=== PATIENT | female | born 1980 ===

== ENCOUNTER 2017-09-29 18:19 | Emergency (ER) | payer MEDICAID, OTHER ==
[2017-09-29 18:19] VITALS: BMI 27.1
[2017-09-29] MEDS ORDERED: Sodium Chloride 0.9% 1,000 ML IV STA (18:38)
--- NOTE | 2017-09-29 18:39 | ED PDOC ---
History of Present Illness History of Present Illness: 36 year old female presents to the emergency department complaining of generalized body aches, headache, and fever, since yesterday. Patient also reports chest pain. She denies any cough, sore throat, vomiting, or diarrhea. Patient had gone to [facility] just prior but left because the wait was too long. PMD: none HPI: Influenza Time Seen by Provider: 09/29/17 18:31 Chief Complaint: Flu-like Symptoms Chief Complaint (Provider): Flu-like Symptoms History Per: Patient, Family (daughter at bedside is translating in slovenian) Exam Limitations: no limitations Onset/Duration Of Symptoms: Days (x2) Symptoms include: fever, headache, bodyaches, chest pain Past Medical History Reviewed: Historical Data, Nursing Documentation, Vital Signs Vital Signs: Last Vital Signs Temp 100.7 F H 09/29/17 18:24 Pulse 103 H 09/29/17 18:24 Resp 16 09/29/17 18:24 BP 112/71 09/29/17 18:24 Pulse Ox 100 09/29/17 18:24 - Medical History PMH: No Chronic Diseases - Surgical History Surgical History: (x3) - Family History Family History: States: Unknown Family Hx - Social History Current smoker - smoking cessation education provided: No Alcohol: Social Drugs: Denies - Immunization History Hx Tetanus Toxoid Vaccination: No Hx Influenza Vaccination: No Hx Pneumococcal Vaccination: No - Home Medications Home Medications: Ambulatory Orders Medication Instructions Recorded DiphenhydrAMINE [Benadryl] 25 mg PO Q4H PRN #15 cap 10/12/16 predniSONE [predniSONE Tab] 40 mg PO DAILY #6 tab 10/12/16 Acetaminophen [Tylenol 325mg tab] 650 mg PO Q4 PRN #1 bottle 09/29/17 Ibuprofen [Motrin] 600 mg PO Q6 PRN #20 tab 09/29/17 - Allergies Allergies/Adverse Reactions: Allergies Allergy/AdvReac Type Severity Reaction Status Date / Time No Known Allergies Allergy Verified 09/29/17 18:24 Review of Systems ROS Statement: Except As Marked, All Systems Reviewed And Found Negative Constitutional: Positive for: Fever ENT: Negative for: Throat Pain Cardiovascular: Positive for: Chest Pain Respiratory: Negative for: Cough Gastrointestinal: Positive for: Abdominal Pain. Negative for: Vomiting, Diarrhea Neurological: Positive for: Headache Physical Exam - Reviewed Nursing Documentation Reviewed: Yes Vital Signs Reviewed: Yes - Physical Exam Appears: Positive for: Non-toxic, No Acute Distress Head Exam: Positive for: ATRAUMATIC, NORMAL INSPECTION, NORMOCEPHALIC Skin: Positive for: Normal Color. Negative for: Rash Eye Exam: Positive for: Normal appearance ENT: Positive for: Normal ENT Inspection Cardiovascular/Chest: Positive for: Regular Rate, Rhythm Respiratory: Positive for: Normal Breath Sounds Gastrointestinal/Abdominal: Positive for: Soft. Negative for: Tenderness, Distended Neurologic/Psych: Positive for: Alert, Oriented Medical Decision Making Medical Decision Making: Impression: 36 year old with flu-like symptoms Time: 18:36 Plan: EKG CMP CBC Urine preg Chest x-ray Blood culture Throat culture Rapid strep test Flu swab IV fluids Motrin 600 mg PO Patient is aware of all diagnostic testing results, all questions answered. Patient feels much better. Repeat vitals are stable. Prescriptions provided for Tylenol and Motrin, advised rest, fluids and follow-up with clinic in 2-3 days. Scribe Attestation: Documented by Carley Monroe, acting as a scribe for Maricruz Dietz PA-C Provider Scribe Attestation: All medical record entries made by the Scribe were at my direction and personally dictated by me. I have reviewed the chart and agree that the record accurately reflects my personal performance of the history, physical exam, medical decision making, and the department course for this patient. I have also personally directed, reviewed, and agree with the discharge instructions and disposition. - Laboratory Results Result Diagrams: 09/29/17 19:20 09/29/17 18:52 Urine POC: Negative Urine dip results: Positive for: Blood (moderate - patient is currently menstruating). Negative for: Leukocyte Esterase, Nitrate, Ketones, Glucose, Bilirubin, Protein - ECG Interpretation Of ECG: NSR 71 bpm, no acute finding, reviewed by PA and ED attending O2 Sat by Pulse Oximetry: 100 (RA) Pulse Ox Interpretation: Normal - Other Rad CXR X-Ray: Interpreted by Me, Viewed By Me X-Ray Interpretation: no acute finding Disposition - Clinical Impression Clinical Impression: Influenza-like symptoms, Viral illness - Patient ED Disposition Is Patient to be Admitted: No Counseled Patient/Family Regarding: Studies Performed, Diagnosis, Need For Followup, Rx Given - Disposition Referrals: [facility] [place] [Outside] Disposition: Routine/Home Disposition Time: 20:56 Condition: IMPROVED Additional Instructions: Take rx meds as directed. Rest and drink plenty of fluids. Follow up with clinic in 2-3 days. Prescriptions: Acetaminophen [Tylenol 325mg tab] 650 mg PO Q4 PRN #1 bottle PRN Reason: Fever >100.4 F Ibuprofen [Motrin] 600 mg PO Q6 PRN #20 tab PRN Reason: Pain, Moderate (4-7) Instructions: Viral Syndrome (DC) Forms: [employer] (Nepali), [facility] ED School/Work Excuse Print Language: TONGAN Results - Lab Results Lab Results: 09/29/17 09/29/17 09/29/17 19:20 18:52 18:52 WBC 11.3 H RBC 4.25 Hgb 13.2 Hct 39.6 MCV 93.1 MCH 31.1 H MCHC 33.4 RDW 13.4 Plt Count 311 MPV 7.7 Neut % (Auto) 81.6 H Lymph % (Auto) 12.1 L [place] % (Auto) 6.1 Eos % (Auto) 0.0 Baso % (Auto) 0.2 Neut # (Auto) 9.2 H Lymph # (Auto) 1.4 [place] # (Auto) 0.7 Eos # (Auto) 0.0 Baso # (Auto) 0.0 Sodium 139 Potassium 3.5 L Chloride 105 Carbon Dioxide 20 L Anion Gap 18 BUN 11 Creatinine 0.6 L Est GFR ( Amer) > 60 Est GFR (Non-Af Amer) > 60 Random Glucose 124 H Calcium 9.1 Total Bilirubin 0.3 AST 19 ALT 23 Alkaline Phosphatase 65 Total Protein 7.5 Albumin 4.0 Globulin 3.5 Albumin/Globulin Ratio 1.2 Influenza Typ A,B (EIA) Grp A Beta Strep Ag Negative 09/29/17 18:52 WBC RBC Hgb Hct MCV MCH MCHC RDW Plt Count MPV Neut % (Auto) Lymph % (Auto) [place] % (Auto) Eos % (Auto) Baso % (Auto) Neut # (Auto) Lymph # (Auto) [place] # (Auto) Eos # (Auto) Baso # (Auto) Sodium Potassium Chloride Carbon Dioxide Anion Gap BUN Creatinine Est GFR ( Amer) Est GFR (Non-Af Amer) Random Glucose Calcium Total Bilirubin AST ALT Alkaline Phosphatase Total Protein Albumin Globulin Albumin/Globulin Ratio Influenza Typ A,B (EIA) Negative for flu a/b Grp A Beta Strep Ag
[2017-09-29 19:36] LABS: BASO % 0.2 % (0.0-2.0); HEMOGLOBIN 13.2 g/dL (12.0-16.0); LYMPH # 1.4 K/uL (1.0-4.3); LYMPH % 12.1 % (20.0-40.0); MEAN CELL VOLUME 93.1 fl (81.0-99.0); MEAN CORPUSCULAR HEMOGLOBIN 31.1 pg (27.0-31.0); MEAN CORPUSCULAR HGB CONC 33.4 g/dL (33.0-37.0); MEAN PLATELET VOLUME 7.7 fl (7.2-11.7); MONO # 0.7 K/uL (0.0-0.8); MONO % 6.1 % (0.0-10.0); NEUT # 9.2 K/uL (1.8-7.0); NEUT % 81.6 % (50.0-75.0); RBC 4.25 Mil/uL (3.80-5.20); RED CELL DISTRIBUTION WIDTH 13.4 % (11.5-14.5); WHITE BLOOD COUNT 11.3 K/uL (4.8-10.8)
[2017-09-29 19:51] LABS: ALB/GLOB RATIO 1.2 (1.0-2.1); ALT/SGPT 23 U/L (9-52); AST/SGOT 19 U/L (14-36); BLOOD UREA NITROGEN 11 mg/dl (7-17); CALCIUM 9.1 mg/dL (8.4-10.2); GFR AFRICAN-AMERICAN > 60; GFR NON-AFRICAN AMERICAN > 60
[2017-09-29 21:00] VITALS: BP 112/65; PULSE 74; RESP 18; TEMP 99; O2SAT 100
--- NOTE | 2017-09-30 08:57 | RAD ---
HISTORY: cough COMPARISON: No prior. TECHNIQUE: Chest PA and lateral FINDINGS: LUNGS: No active pulmonary disease. PLEURA: No significant pleural effusion identified. No pneumothorax apparent. CARDIOVASCULAR: Normal. OSSEOUS STRUCTURES: No significant abnormalities. VISUALIZED UPPER ABDOMEN: Normal. OTHER FINDINGS: None. IMPRESSION: No active disease.
--- NOTE | 2017-09-30 20:30 | CARD ---
APPROVED REPORT EKG Measurement Heart [id number] <Conclusion> Normal sinus rhythm Normal ECG
== END 2017-09-29 21:17 | disposition home or self-care (01) ==
LOC: H.ER 18:19
DX: J11.1 Influenza due to unidentified influenza virus with other respiratory manifestations (principal)
CPT/HCPCS: 71046; 80053; 81025; 85025; 87040; 87070; 87086; 87430; 87804; 93005; 99283; J7040

== ENCOUNTER 2018-03-03 21:38 | Emergency (ER) | payer OTHER ==
[2018-03-03 21:38] VITALS: BMI 27.1
[2018-03-03 21:45] VITALS: BP 115/77; PULSE 90; RESP 18; TEMP 98.1; O2SAT 97
--- NOTE | 2018-03-03 22:26 | ED PDOC ---
HPI: Female Pain Time Seen by Provider: 03/03/18 22:23 Chief Complaint (Nursing): Female Genitourinary Chief Complaint (Provider): urinary discomfort History Per: Patient (37 y/o femlae here with 5 days of urinary discomfort. Denies any fevers/chills. Denies any back pain/vomiting.) Past Medical History Reviewed: Historical Data, Nursing Documentation, Vital Signs Vital Signs: Last Vital Signs Temp 98.1 F 03/03/18 21:42 Pulse 90 03/03/18 21:42 Resp 18 03/03/18 21:42 BP 115/77 03/03/18 21:42 Pulse Ox 97 03/03/18 21:42 - Surgical History Surgical History: (x3) - Family History Family History: States: Unknown Family Hx - Immunization History Hx Tetanus Toxoid Vaccination: No Hx Influenza Vaccination: No Hx Pneumococcal Vaccination: No - Home Medications Home Medications: Ambulatory Orders Medication Instructions Recorded DiphenhydrAMINE [Benadryl] 25 mg PO Q4H PRN #15 cap 10/12/16 predniSONE [predniSONE Tab] 40 mg PO DAILY #6 tab 10/12/16 Acetaminophen [Tylenol 325mg tab] 650 mg PO Q4 PRN #1 bottle 09/29/17 Ibuprofen [Motrin] 600 mg PO Q6 PRN #20 tab 09/29/17 Cephalexin [Keflex] 500 mg PO TID #14 capsule 03/03/18 Phenazopyridine HCl [Pyridium] 200 mg PO Q6 PRN #5 tablet 03/03/18 - Allergies Allergies/Adverse Reactions: Allergies Allergy/AdvReac Type Severity Reaction Status Date / Time No Known Allergies Allergy Verified 09/29/17 18:24 Review of Systems ROS Statement: Except As Marked, All Systems Reviewed And Found Negative Physical Exam - Reviewed Nursing Documentation Reviewed: Yes Vital Signs Reviewed: Yes - Physical Exam Appears: Positive for: Well, Non-toxic, No Acute Distress Head Exam: Positive for: ATRAUMATIC, NORMAL INSPECTION, NORMOCEPHALIC Skin: Positive for: Normal Color, Warm, DRY Eye Exam: Positive for: EOMI, Normal appearance, PERRL ENT: Positive for: Normal ENT Inspection Neck: Positive for: Normal, Painless ROM Cardiovascular/Chest: Positive for: Regular Rate, Rhythm Respiratory: Positive for: CNT, Normal Breath Sounds Gastrointestinal/Abdominal: Positive for: Normal Exam, Soft Back: Positive for: Normal Inspection Extremity: Positive for: Normal ROM Neurologic/Psych: Positive for: Alert, Oriented - Laboratory Results Urine POC: Negative Urine dip results: Positive for: Leukocyte Esterase, Blood. Negative for: Nitrate, Ketones, Glucose, Bilirubin, Protein - ECG O2 Sat by Pulse Oximetry: 97 - Progress ED Course And Treament: keflex 500 mg x 1 dose pyridium 200 mg x 1 dose Disposition - Clinical Impression Clinical Impression: UTI (urinary tract infection) - Patient ED Disposition Is Patient to be Admitted: No - Disposition Referrals: [facility] [Outside] Disposition: Routine/Home Disposition Time: 22:25 Condition: FAIR Prescriptions: Cephalexin [Keflex] 500 mg PO TID #14 capsule Phenazopyridine HCl [Pyridium] 200 mg PO Q6 PRN #5 tablet PRN Reason: Urinary Discomt Instructions: Urinary Tract Infections in Adults Print Language: MEXICAN
[2018-03-03 23:10] LABS: SQUAMOUS EPITHIAL 1 /hpf (0-5); URINE BILIRUBIN NEGATIVE (NEGATIVE); URINE BLOOD MODERATE (NEGATIVE); URINE CLARITY CLOUDY (Clear); URINE COLOR YELLOW (YELLOW); URINE GLUCOSE (UA) NEG (Normal); URINE LEUKOCYTE ESTERASE LARGE Leu/uL (Negative); URINE PROTEIN 30 mg/dL (NEGATIVE); URINE UROBILINOGEN 0.2-1.0 mg/dL (0.2-1.0)
== END 2018-03-03 23:37 | disposition home or self-care (01) ==
LOC: H.ER 21:38
DX: N39.0 Urinary tract infection, site not specified (principal)